=== PATIENT | female | born 1970 | race Caucasian/White ===

== ENCOUNTER 2017-03-19 16:32 | Emergency (ER) | payer MEDICAID ==
--- NOTE | 2017-03-19 18:10 | EDM.PDOC ---
ED HPI GENERAL MEDICAL PROBLEM - General Chief Complaint: Upper Extremity Injury/Pain Stated Complaint: PT HAS LUMP ON LT ARM Time Seen by Provider: 03/19/17 18:05 Source of Information: Reports: Patient History Limitations: Reports: No Limitations - History of Present Illness INITIAL COMMENTS - FREE TEXT/NARRATIVE: HISTORY AND PHYSICAL: History of present illness: [Patient comes to the emergency room to follow-up on an abscess to her left elbow. She was seen at a local walk-in clinic yesterday and was prescribed clindamycin 300 mg 3 times a day. She took one dose last night and 2 today. Patient states that she is presenting to the emergency room because her abscess is not better. States that she is not worsening. Is not terribly painful. Denies fever and chills. No abdominal pain, nausea or vomiting. She's been having clear drainage from the area.] Review of systems: As per history of present illness and below otherwise all systems reviewed and negative. Past medical history: As per history of present illness and as reviewed below otherwise noncontributory. Surgical history: As per history of present illness and as reviewed below otherwise noncontributory. Social history: No reported history of drug or alcohol abuse. Family history: As per history of present illness and as reviewed below otherwise noncontributory. Physical exam: HEENT: Atraumatic, normocephalic. Lungs: Clear to auscultation, breath sounds equal bilaterally. Heart: S1S2, regular rate and rhythm. Abdomen: Soft, nondistended, nontender. Pelvis: Stable nontender. Genitourinary: Deferred. Rectal: Deferred. Extremities: L posterior forearm shows a 11.5 x 11.5cm confluent area of redness , swelling, and numerous abscesses. Is draining a small amount of clear fluid from 2 sites. Neurovascular unremarkable. Neuro: Awake, alert, oriented. Motor and sensory unremarkable throughout. Exam nonfocal. Impression: [Abscess to left elbow.] Plan: [Wound is dressed w/ Kerlix. Discussed with patient not to express fluid from wound, keep clean and dry, and practice good handwashing. Continue clindamycin and follow-up with PCP on Tuesday. She is in agreement with today's plan. ] Definitive disposition and diagnosis as appropriate pending reevaluation and review of above. left forearm Pain Score (Numeric/FACES): 8 - Related Data Allergies Allergy/AdvReac Type Severity Reaction Status Date / Time No Known Allergies Allergy Verified 03/19/17 17:21 Home Meds: Home Meds Ciprofloxacin [IMW: Ciprofloxacin HCl] 500 mg PO BID #14 tab 05/21/16 [Rx] Past Medical History - Past Health History Medical/Surgical History: Denies Medical/Surgical History [employer] PERSON History: Reports: Musculoskeletal History: Reports: Fracture Dermatologic History: Reports: Psoriasis - Past Surgical History Female Surgical History: Reports: Other (See Below) Other Female Surgeries/Procedures: Bartholin's cyst Musculoskeletal Surgical History: Reports: Other (See Below) Other Musculoskeletal Surgeries/Procedures:: finger sx Social & Family History - Family History Family Medical History: Noncontributory - Tobacco Use Smoking Status *Q: Current Every Day Smoker Years of Tobacco use: 25 Packs/Tins Daily: 1 - Alcohol Use Days Per Week of Alcohol Use: 1 Number of Drinks Per Day: 6 Total Drinks Per Week: 6 - Recreational Drug Use Recreational Drug Use: No Review of Systems - Review of Systems Review Of Systems: ROS reveals no pertinent complaints other than HPI. ED EXAM, GENERAL - Physical Exam Exam: See Below Course - Vital Signs Last Recorded V/S: Last Vital Signs Temp 98.6 F 03/19/17 16:35 Pulse 107 H 03/19/17 16:35 Resp 18 03/19/17 16:35 BP 136/87 03/19/17 16:35 Pulse Ox Departure - Departure Time of Disposition: 18:20 Disposition: Home, Self-Care 01 Condition: Good Clinical Impression: Abscess - Discharge Information Instructions: Abscess Referrals: PCP,None [Primary Care Provider] - Forms: ED Department Discharge Additional Instructions: The following information is given to patients seen in the emergency department who are being discharged to home. This information is to outline your options for follow-up care. We provide all patients seen in our emergency department with a follow-up referral. The need for follow-up, as well as the timing and circumstances, are variable depending upon the specifics of your emergency department visit. If you don't have a primary care physician on staff, we will provide you with a referral. We always advise you to contact your personal physician following an emergency department visit to inform them of the circumstance of the visit and for follow-up with them and/or the need for any referrals to a consulting specialist. The emergency department will also refer you to a specialist when appropriate. This referral assures that you have the opportunity for follow-up care with a specialist. All of these measure are taken in an effort to provide you with optimal care, which includes your follow-up. Under all circumstances we always encourage you to contact your private physician who remains a resource for coordinating your care. When calling for follow-up care, please make the office aware that this follow-up is from your recent emergency room visit. If for any reason you are refused follow-up, please contact the [facility] emergency department at and asked to speak to the emergency department charge nurse. [facility] [address] [place] [id number] Establish care with a local primary care provider. Keep the area clean and dry. Practice good handwashing. Take all medications as prescribed. Return to ER as needed as discussed.
== END 2017-03-19 18:25 | disposition home or self-care (01) ==
LOC: MW.ED 16:32
CPT/HCPCS: 99282; 99283

== ENCOUNTER 2018-01-14 01:09 | Emergency (ER) | payer MEDICAID, OTHER ==
[2018-01-14] MEDS ORDERED: Diphtheria,Pertussis(Acell),Tetanus Vaccine 0.5 ML Syringe IM ONE (01:42)
[2018-01-14] MEDS ORDERED: Bacitracin Oint 1 GM U/D Packet ONE (02:33)
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
[2018-01-14 02:41] VITALS: BP 115/82
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
== END 2018-01-14 02:45 ==
LOC: MW.ED 01:09
DX: S00.31XA Abrasion of nose, initial encounter (principal); S00.212A Abrasion of left eyelid and periocular area, initial encounter; S50.812A Abrasion of left forearm, initial encounter; S50.811A Abrasion of right forearm, initial encounter; S80.212A Abrasion, left knee, initial encounter; S80.211A Abrasion, right knee, initial encounter; Y04.8XXA Assault by other bodily force, initial encounter; F10.129 Alcohol abuse with intoxication, unspecified; Y07.03 Male partner, perpetrator of maltreatment and neglect; F17.210 Nicotine dependence, cigarettes, uncomplicated; Z23 Encounter for immunization
CPT/HCPCS: 70450; 70450-26; 70486; 70486-26; 90471; 90715; 99283-25

== ENCOUNTER 2022-02-02 09:39 | Day surgery (SDC) | payer MEDICAID ==
[~2022-02-02 09:39] MED LIST: Albuterol 0.083% 2.5 MG/3 ML Neb Soln NEB PRN; HYDROmorphone 1 MG/ML Syringe IVPUSH PRN; Lactated Ringers 1,000 ML IV SCH; Metoclopramide 10 MG/2 ML SDV IVPUSH PRN; Morphine 4 MG/ML VIAL IVPUSH PRN; Naloxone 0.4 MG/ML SDV IVPUSH PRN; Ondansetron 4 MG/2 ML SDV IVPUSH PRN; Sodium Chloride 0.9% 10 ML Syringe FLUSH PRN; Sodium Chloride 0.9% 2.5 ML Syringe FLUSH PRN; Sodium Chloride 0.9% 20 ML SDV IV PRN; fentaNYL 100 MCG/2 ML SDV IVPUSH PRN
[2022-02-02] MEDS ORDERED: Bupivacaine 0.5% 10 ML SDV ONE (10:03)
[2022-02-02] MEDS ORDERED: propofoL 100 ML ONE (10:42)
[2022-02-02] MEDS ORDERED: Dexamethasone 4 MG/ML 5 ML MDV ONE (12:18)
[2022-02-02 12:48] VITALS: BP 98/62; PULSE 66
== END 2022-02-02 13:51 | disposition home or self-care (01) ==
LOC: MW.SDS 09:39
PROVIDERS: ATTEND Surgery
DX: Z12.11 Encounter for screening for malignant neoplasm of colon (principal); K63.5 Polyp of colon; K62.89 Other specified diseases of anus and rectum; K57.30 Diverticulosis of large intestine without perforation or abscess without bleeding; E55.9 Vitamin D deficiency, unspecified; F17.210 Nicotine dependence, cigarettes, uncomplicated; L98.8 Other specified disorders of the skin and subcutaneous tissue; Z79.899 Other long term (current) drug therapy
CPT/HCPCS: 45380; 46922; J1100; J2704; J3490; J7120; 00812

== ENCOUNTER 2022-10-17 12:00 | Emergency (ER) | payer MEDICAID ==
[2022-10-17] MEDS ORDERED: Acetaminophen/HYDROcodone 325-5 MG Tab PO ONE (14:35)
[2022-10-17 14:58] VITALS: BP 115/84; PULSE 77
== END 2022-10-17 14:50 | disposition home or self-care (01) ==
LOC: MW.ED 12:00
DX: S82.852A Displaced trimalleolar fracture of left lower leg, initial encounter for closed fracture (principal); X50.1XXA Overexertion from prolonged static or awkward postures, initial encounter; Y93.01 Activity, walking, marching and hiking
CPT/HCPCS: 29515; 73610; 99283; A9270

== ENCOUNTER 2024-10-11 13:11 | Emergency (ER) | payer MEDICAID ==
[2024-10-11] MEDS: Sodium Chloride 0.9% 1,000 ML IV ONE (13:55)
[2024-10-11 14:02] LABS: BASOPHILS ABSOLUTE AUTO 0.04 K/uL (0.00-0.20); BASOPHILS PERCENT AUTO 0.3 % (0.0-1.0); EOSINOPHILS ABSOLUTE AUTO 0.04 K/uL (0.00-0.45); EOSINOPHILS PERCENT AUTO 0.3 % (0.0-6.0); HEMATOCRIT 43.4 % (37.0-47.0); HEMOGLOBIN 14.9 g/dL (12.0-16.0); IMMATURE GRAN ABSOLUTE AUTO 0.05 K/uL (0.00-0.05); IMMATURE GRAN PERCENT AUTO 0.4 % (0.0-0.4); LYMPHOCYTES ABSOLUTE AUTO 1.11 K/uL (1.00-4.80); LYMPHOCYTES PERCENT AUTO 9.3 % (24.0-44.0); MEAN CORPUSCULAR HEMOGLOBIN 30.9 pg (28.0-32.0); MEAN CORPUSCULAR HGB CONC 34.3 g/dL (32.0-36.0); MONOCYTES ABSOLUTE AUTO 0.65 K/uL (0.00-0.80); MONOCYTES PERCENT AUTO 5.5 % (0.0-8.0); NEUTROPHILS ABSOLUTE AUTO 10.03 K/uL (1.80-7.70); NEUTROPHILS PERCENT AUTO 84.2 % (41.0-71.0); PLATELET COUNT,PLT 261 K/uL (150-400); RED BLOOD CELL COUNT 4.82 M/uL (4.10-5.30); WHITE BLOOD CELL COUNT,WBC 11.92 K/uL (3.9-11.3)
[2024-10-11 14:20] LABS: INR 0.96 (0.86-1.11)
[2024-10-11] MEDS: Ketorolac 30 MG/ML SDV IVPUSH ONE (14:26)
[2024-10-11] MEDS: Acetaminophen 500 MG Tab PO ONE (14:27)
[2024-10-11] MEDS: Morphine 2 MG/ML SYRINGE IVPUSH ONE (14:27)
[2024-10-11] MEDS: Ondansetron 4 MG/2 ML SDV IVPUSH ONE (14:27)
[2024-10-11] MEDS: Diphtheria,Pertussis(Acell),Tetanus Vaccine 0.5 ML Syringe IM ONE (14:27)
[2024-10-11 14:29] LABS: A/G RATIO 0.8 (0.9-1.6); ALBUMIN 3.5 g/dL (3.4-5.0); BILIRUBIN TOTAL 0.5 mg/dL (0.2-1.0); CALCIUM 8.9 mg/dL (8.5-10.1); CARBON DIOXIDE,CO2 21.9 mmol/L (21.0-32.0); CREATININE 0.8 mg/dL (0.6-1.0); EST CRCL DRUG DOSING (CG) 70.66 mL/min; MAGNESIUM 2.2 mg/dL (1.8-2.4); POTASSIUM,K 3.9 mmol/L (3.5-5.1); PROTEIN TOTAL,TP 7.8 g/dL (6.4-8.2)
[2024-10-11 16:26] VITALS: BP 119/79; PULSE 90
[2024-10-11] MEDS: Lanolin/Mineral Oil/NaCl/Petrolatum Lotion 177 ML Bottle TOP PRN (16:52)
== END 2024-10-11 16:56 | disposition home or self-care (01) ==
LOC: MW.ED 13:11
DX: T33.09XA Superficial frostbite of other part of head, initial encounter (principal); T33.522A Superficial frostbite of left hand, initial encounter; T33.521A Superficial frostbite of right hand, initial encounter; Z79.899 Other long term (current) drug therapy; E78.00 Pure hypercholesterolemia, unspecified; Z23 Encounter for immunization; X31.XXXA Exposure to excessive natural cold, initial encounter; Y93.89 Activity, other specified
CPT/HCPCS: 36415; 80053; 83735; 85025; 85610; 90471; 90715; 96361; 96374; 96375; 99283; A9270; J1885; J2270; J2405; J7030